=== PATIENT | female | born 1945 | race Caucasian/White ===

== ENCOUNTER 2021-03-18 09:39 | Outpatient (REF) | payer MEDICARE, MEDICAID, SELFPAY ==
--- NOTE | ~2021-03-18 | MM_ITS ---
EXAMINATION: BONE DENSITOMETRY CLINICAL INDICATION: Screening for osteoporosis. COMPARISON: Previous BD dated 01/10/2018 and baseline BD dated 01/20/2012. TECHNIQUE: Using a [employer] DXA System (software version: 13.1) manufactured by [employer], dual-energy x-ray absorptiometry was performed of the lumbar spine and left hip. The images are of good technical quality. Summary results are attached. FINDINGS: AP SPINE L1-L4: Current: BMD 1.103 g/cm2, Z-score 0.2, T-score -0.6, normal, 2.6% increase from previous, 1.8% increase from baseline (<5% change is not significant). Prior: BMD 1.075 g/cm2. Baseline: BMD 1.083 g/cm2. LEFT FEMUR, NECK: Current: BMD 0.602 g/cm2, Z-score -1.8, T-score -3.1, osteoporosis. Prior: BMD 0.695 g/cm2. Baseline: BMD 0.823 g/cm2. LEFT FEMUR, TOTAL: Current: BMD 0.749 g/cm2, Z-score -0.9, T-score -2.1, osteopenia, 1.8% decrease from previous, 14.8% decrease from baseline (<5% change is not significant). Prior: BMD 0.763 g/cm2. Baseline: BMD 0.879 g/cm2. IDENTIFIED RISK FACTORS: Dementia, menopause. HISTORY OF FRACTURE: None listed. MEDICATIONS: None listed. MM/XR DEXA axial skeleton IMPRESSION: 1. DIAGNOSIS: Osteoporosis based on the lowest T-score value of -3.1 in the femoral neck applying World Health Organization criteria. 2. 10-YEAR FRACTURE RISK PREDICTION, FRAX: Major osteoporotic fracture (clinical spine, forearm, hip or shoulder) 21.3%. Hip fracture 8.4%. 3. Treatment Recommendations: NOF guidelines recommend consideration for treatment in postmenopausal women and men age 50 and older presenting with the following: -A hip or vertebral (clinical or morphometric) fracture. -T-score less than or equal to -2.5 at the femoral neck or spine after appropriate evaluation to exclude secondary causes. -Low bone mass at the hip or spine and a 10-year fracture probability by FRAX of greater than or equal to 3% for hip fracture or greater than or equal to 20% for major osteoporotic fracture based on the [place] adapted WHO algorithm. 4. Other Recommendations: All treatment decisions require clinical judgment and consideration of individual patient factors, including patient preferences, comorbidities, previous drug use, risk factors not captured in the FRAX model (e.g. frailty, falls, vitamin D deficiency, increased bone turnover, interval significant decline in bone density) and possible under or overestimation of fracture risk by FRAX. Additional medical evaluation for secondary cause of low bone mineral density may be appropriate. FUTURE SCAN RECOMMENDATION: People with diagnosed cases of osteoporosis or at high risk for fracture should have regular bone mineral density tests. For patients eligible for Medicare, routine testing is allowed once every 2 years. The testing frequency can be increased to one year for patients who have rapidly progressing disease, those who are receiving or discontinuing medical therapy to restore bone mass, or have additional risk factors.
--- NOTE | ~2021-03-18 | MM_ITS ---
EXAMINATION: MM SCREENING DIGITAL BREAST TOMOSYNTHESIS, BILATERAL CLINICAL INFORMATION: Screening. Asymptomatic. The lifetime risk of breast cancer based on the Tyrer-Cuzick Model is 2%. COMPARISON: Mammography: 01/10/2018, 06/28/2016 TECHNIQUE: Digital breast tomosynthesis is performed in both the craniocaudal and mediolateral oblique views along with computer-aided detection (CAD). Synthesized 2D images are generated from the tomosynthesis. Additional left cleavage view is provided. FINDINGS: The breasts are almost entirely fatty (ACR BI-RADS breast composition Category a). Background stromal markings are stable. There are no significant masses, abnormal calcifications, or other abnormalities. The axilla and skin contours are unremarkable. No significant changes. MM/MM tomosynthesis screening BI IMPRESSION: No mammographic evidence of malignancy. ASSESSMENT: BI-RADS 1: Negative RECOMMENDATION: Routine annual mammography screening. This patient's information was entered into a reminder system with a target due date for their next mammogram.
== END 2021-03-18 09:40 | disposition home or self-care (01) ==
LOC: HO.MAMMO 09:39
PROVIDERS: PCP Internal Medicine; Visit Provider Internal Medicine
DX: Z13.820 Encounter for screening for osteoporosis (principal); Z78.0 Asymptomatic menopausal state; Z12.31 Encounter for screening mammogram for malignant neoplasm of breast
CPT/HCPCS: 77063; 77067; 77080

== ENCOUNTER 2021-08-18 14:36 | Outpatient (REF) | payer MEDICARE, MEDICAID, SELFPAY ==
--- NOTE | ~2021-08-18 | XR_ITS ---
EXAMINATION: XR TIBIA AND FIBULA, RIGHT CLINICAL INFORMATION: Reason fall COMPARISON: None TECHNIQUE: AP and lateral views of the right tibia and fibula were obtained. FINDINGS: The bones and soft tissues are normal. No fracture. There is a small calcaneal heel and retrocalcaneal enthesophytes. There is mild irregularity involving the ankle mortise with subchondral cystic changes involving the talus likely degenerative arthritis. XR/XR tibia fibula RT 2V IMPRESSION: No acute fracture involving tibia or fibula. Small calcaneal and retrocalcaneal enthesophyte. Mild degenerative changes ankle mortise.
--- NOTE | ~2021-08-18 | CT_ITS ---
EXAMINATION: CT HEAD WITHOUT CONTRAST CLINICAL INFORMATION: Reason fall, new dementia. M/S changes. COMPARISON: None TECHNIQUE: Contiguous axial imaging was performed from the skull base to vertex without intravenous administration of contrast. This CT examination was performed using dose optimization techniques as appropriate, variously including the following: *Automated exposure control *Adjustment of mA and/or kV according to patient size (this includes techniques or standardized protocols for targeted exams where dose is matched to indication/reason for exam; i.e. extremities or head) *Use of iterative reconstruction technique DLP: 779 mGy-cm FINDINGS: There is no evidence of acute intracranial hemorrhage or territorial infarction. No abnormal mass effect or midline shift is seen. Titus to white matter differentiation is well preserved. No extra-axial fluid collections are identified. The lateral ventricles are symmetrical but enlarged. There is mild periventricular hypodensity suggestive of chronic small vessel ischemic disease. Bone windows reveal no calvarial abnormality. There is a calcified 9 mm extracranial scalp lesion left parietal region The mastoid air cells and visualized portions of the paranasal sinuses are well aerated. CT/CT head/brain wo con IMPRESSION: No acute intracranial process seen. Age-related mild cerebral volume loss.
== END 2021-08-18 14:37 | disposition home or self-care (01) ==
LOC: HO.CT 14:36
PROVIDERS: Visit Provider Internal Medicine
DX: R41.82 Altered mental status, unspecified (principal); F03.90 Unspecified dementia, unspecified severity, without behavioral disturbance, psychotic disturbance, mood disturbance, and anxiety; Z91.81 History of falling
CPT/HCPCS: 70450; 73590

== ENCOUNTER 2021-12-07 08:10 | Outpatient (REF) | payer MEDICARE, MEDICAID, SELFPAY ==
--- NOTE | ~2021-12-07 | CT_ITS ---
EXAMINATION: CT HEAD WITHOUT CONTRAST CLINICAL INFORMATION: Alzheimer's disease COMPARISON: Previous head CT August 2021 TECHNIQUE: Contiguous axial imaging was performed from the skull base to vertex without intravenous administration of contrast. This CT examination was performed using dose optimization techniques as appropriate, variously including the following: *Automated exposure control *Adjustment of mA and/or kV according to patient size (this includes techniques or standardized protocols for targeted exams where dose is matched to indication/reason for exam; i.e. extremities or head) *Use of iterative reconstruction technique DLP: 724 mGy-cm FINDINGS: There is no evidence of an extra-axial collection. There is no evidence of intra-axial or extra-axial hemorrhage. The ventricles and extra-axial CSF spaces are prominent suggestive of mild generalized atrophy. There is nonspecific periventricular white matter disease. No mass, mass effect or infarct is seen. There is evidence of atherosclerotic disease. No skull fracture or bone lesion is seen. There are bilateral small calcified scalp lesions that are stable. Visualized paranasal sinuses, mastoid air cells and middle ears are clear. CT/CT head/brain wo con IMPRESSION: No acute findings. Mild generalized atrophy and nonspecific periventricular white matter disease August 2021 exam.
== END 2021-12-07 08:11 | disposition home or self-care (01) ==
LOC: HO.CT 08:10
PROVIDERS: Visit Provider Psychiatry & Neurology Neurology
DX: G30.9 Alzheimer's disease, unspecified (principal)
CPT/HCPCS: 70450

== ENCOUNTER 2022-06-16 09:58 | Emergency (ER) | payer MEDICARE, MEDICAID, SELFPAY ==
--- NOTE | ~2022-06-16 | XR_ITS ---
EXAMINATION: XR KNEE, RIGHT CLINICAL INFORMATION: Right knee pain status post fall. COMPARISON: None TECHNIQUE: Four views of the right knee. FINDINGS: Mild medial femoral-tibial joint space narrowing is seen. There is no acute fracture or dislocation. The joint spaces are unremarkable. The soft tissues are unremarkable. XR/XR knee RT 3V IMPRESSION: Mild medial femoral-tibial joint space narrowing likely degenerative in nature. No acute abnormality.
--- NOTE | ~2022-06-16 | XR_ITS ---
EXAMINATION: XR KNEE, LEFT CLINICAL INFORMATION: Left knee pain status post fall. COMPARISON: None TECHNIQUE: Four views of the left knee. FINDINGS: Mild medial femoral-tibial joint space narrowing is seen. There is no acute fracture, dislocation or joint effusion. The soft tissues are unremarkable. XR/XR knee LT 3V IMPRESSION: Mild medial femoral-tibial joint space narrowing, likely degenerative in nature. No acute abnormality.
--- NOTE | ~2022-06-16 | CT_ITS ---
EXAMINATION: CT HEAD WITHOUT CONTRAST CLINICAL INFORMATION: Unwitnessed fall, rule out intracranial abnormality. COMPARISON: 12/07/[address] scan[address] TECHNIQUE: Contiguous axial imaging was performed from the skull base to vertex without intravenous administration of contrast. Coronal and sagittal reformatted images were obtained. This CT examination was performed using dose optimization techniques as appropriate, variously including the following: *Automated exposure control *Adjustment of mA and/or kV according to patient size (this includes techniques or standardized protocols for targeted exams where dose is matched to indication/reason for exam; i.e. extremities or head) *Use of iterative reconstruction technique DLP: 682.94 mGy-cm FINDINGS: There is mild widening of the cortical sulci and associated ventriculomegaly. Mild periventricular microvascular changes are seen. The lateral ventricles are symmetrical. The third and fourth ventricles are in their normal midline position. The basilar and prepontine cisterns are unremarkable. An ovoid nodule seen along the inner table of the left parietal region superiorly to the level the midline measuring approximately 1.1 x 0.7 x 0.8 cm (image 86, series 9; image 56, series 11). There is no acute intra or extracerebral abnormality. There is no mass effect or midline shift. Sections through the bony calvarium are unremarkable. The orbits are intact. The paranasal sinuses are clear. The mastoid air cells are clear. Mild anterior nasal septal deviation, apex of the left. Incidental coarsely calcified subcutaneous nodules without surrounding abnormality or significant abnormality. CT/CT head/brain wo IV con IMPRESSION: 1. No acute intracranial abnormality. 2. Left parietal nodule suggesting a meningioma. Further evaluation with nonemergent contrast-enhanced brain MRI is recommended.
--- NOTE | ~2022-06-16 | CT_ITS ---
EXAMINATION: CT CERVICAL SPINE WITHOUT CONTRAST CLINICAL INFORMATION: Neck pain status post fall. COMPARISON: Cervical spine radiographs dated 08/09/2019. TECHNIQUE: Multiple axial images of the cervical spine were obtained without the administration of intravenous contrast. Coronal and sagittal reformatted images were obtained. This CT examination was performed using dose optimization techniques as appropriate, variously including the following: *Automated exposure control *Adjustment of mA and/or kV according to patient size (this includes techniques or standardized protocols for targeted exams where dose is matched to indication/reason for exam; i.e. extremities or head) *Use of iterative reconstruction technique DLP: 87.29 mGy-cm FINDINGS: There is straightening of the normal cervical lordosis and mild cervical thoracic dextro scoliosis. Moderate to severe degenerative disc disease at C6-C7 and C7-T1. Mild bilateral neural foraminal narrowing is seen at these levels as well. The vertebral bodies are intact. The odontoid process is intact with mild articulating degenerative changes. Mild to moderate multilevel facet arthropathy, left greater than right. The spinous processes are intact. The cervical soft tissues are unremarkable. No cervical lymphadenopathy. The thyroid gland is unremarkable. The visualized lung apices are clear. CT/CT cervical spine wo IV con IMPRESSION: 1. Mild cervical thoracic levoscoliosis, associated straightening of the normal cervical lordosis and multilevel degenerative changes without acute abnormality .
[2022-06-16 10:14] VITALS: BP 138/86; PULSE 64; O2SAT 98
--- NOTE | 2022-06-16 10:14 | ECG_ITS ---
Test Reason : fall Blood Pressure : / mmHG Vent. Rate : 061 BPM Atrial Rate : 061 BPM P-R Int : 154 ms QRS Dur : 064 ms QT Int : 432 ms P-R-T Axes : 076 000 052 degrees QTc Int : 434 ms Normal sinus rhythm Low voltage QRS RSR' or QR pattern in V1 suggests right ventricular conduction delay Abnormal ECG When compared with ECG of 25-JUN-2009 10:18, Nonspecific T wave abnormality, improved in Anterolateral leads QT has shortened Referred By: Wanda Sarabia Electronically Signed By:RANJANA MERIDA MD
[2022-06-16 10:17] VITALS: BP 150/81; PULSE 71; RESP 18; TEMP 36.6; O2SAT 100; BMI 29.2
--- NOTE | 2022-06-16 10:17 | ED.FALL ---
HPI - Fall General Chief Complaint: Fall Stated Complaint: FALL W/DEVIN KNEE PAIN Time Seen by Provider: 06/16/22 10:01 Mode of arrival: EMS Limitations: altered mental status and physical limitation History of Present Illness HPI Narrative: 77 yo F with a PMH of Alzheimer's disease and current anticoagulation therapy presents to the ED via EMS after an unwitnessed fall at home. Pt with AMS at baseline and unable to report how she fell, what injuries she has, or if she lost consciousness. Currently she denies pain at rest and endorses ttp at left medial knee and right lateral knee. Ecchymosis noted at right lateral knee, pt is unsure if bruising is related to an old injury or current fall. Pt's daughter to be presenting to the ED to be at mother's side. MD complaint: fall Onset (ago): hour(s) Fall from: other (unknown) Fall witnessed: no Place fall occurred: home Loss of consciousness: unsure Prolonged down time: unclear Symptoms prior to fall: other (unclear) Context: other (unclear) Location of injury: other (unclear) Location of injury - extremities: bilateral: knee (swelling noted in medial left knee, ecchymosis noted on right lateral knee) Associated symptoms (after fall): denies Related Data Allergies Allergy/AdvReac Type Severity Reaction Status Date / Time Sulfa (Sulfonamide Allergy Unknown UNKNOWN Unverified 04/17/20 15:05 Antibiotics) [SULFA (SULFONAMIDE ANTIBIOTICS)] sulfamethoxazole Allergy Unknown Verified 01/17/18 00:00 Review of Systems Review of Systems: Yes all other systems are reviewed and are negative Constitutional: Constitutional: Reports no additional constitutional complaints, Denies headache(s) and Reports weakness Eyes: Eyes: Reports no additional eye complaints, Denies blurry vision, Denies change in vision, Denies diplopia and Denies loss of vision ENT: Reports system reviewed and no additional complaints, except as documented, Denies headache(s) and Reports hearing loss Cardiovascular: Cardiovascular: Reports no additional cardiovascular complaints, Denies chest pain, Denies Loss of Consciousness and Denies dyspnea Respiratory: Respiratory: Reports no additional respiratory complaints, Denies pain on inspiration and Denies dyspnea Gastrointestinal: Gastrointestinal: Denies melena, Denies hematochezia, Denies change in stool character, Denies constipation and Denies diarrhea Musculoskeletal: Musculoskeletal: Reports abnormal gait, Denies numbness and Denies tingling Integumentary/Breasts: Skin/Breast: Reports system reviewed and no additional complaints, except as docu and Reports swelling Neurologic: Reports abnormal gait, Reports confusion, Denies headache(s), Denies loss of vision, Reports memory loss, Denies numbness, Denies tingling and Reports weakness Psychiatric: Psychiatric: Reports confusion and Reports memory loss [facility] Past Medical History Attestation statement: The following information was validated with the patient. Source: old records reviewed and obtained from family Social History Social History Advance Directives: No Physical Exam Vital Signs: Vital Signs: Last Vital Signs Temp 98 F 06/16/22 10:17 Pulse 78 06/16/22 12:24 Resp 16 06/16/22 12:24 BP 134/79 06/16/22 12:24 Pulse Ox 97 06/16/22 12:24 O2 Del Method 06/16/22 12:24 BMI result Body Mass Index 29.2 Const: General: cooperative, comfortable, alert and confusion Nutritional Appearance: well nourished Orientation/consciousness: oriented to person, oriented to place and confusion Limitations: altered mental status and physical limitations HEENT: Head: Yes normal to inspection and Yes atraumatic Ears: hearing grossly normal bilaterally General nose exam: Normal external nose present Face and sinus: Yes normal facial exam Mouth: Normal oral and palatal mucosa present Eyes: General: appearance normal, both eyes and all related structures Visual Aj: normal visual aj by confrontation Alignment and Position: alignment normal Periorbital: periorbital findings normal Eyelids: Yes eyelids normal Conjunctivae: conjunctivae normal Sclerae: sclerae normal Pupils: Equal, round and reactive pupils present EOM: EOMs intact bilaterally Neck: Neck: Yes normal visual inspection and Yes full ROM Chest: Chest palpation & inspection: normal inspection of the chest Resp: Effort & Inspection: normal respiratory effort and able to speak in complete sentences Auscultation: clear to auscultation bilaterally Cardio: Rate: regular rate Rhythm: regular rhythm GI: Inspection: Yes normal to inspection Auscultation: normal bowel sounds Back/Spine/Pelvis: Thoracic/Lumbar Spine: thoracic and lumbar spine normal to inspection Skin: General skin exam: ecchymosis (right lateral knee) Neuro: General: oriented to person, oriented to place and confusion Cranial nerves: Yes Equal, round and reactive pupils present Gait exam (Neuro): Normal gait present Motor exam (neuro): 5/5 motor strength present throughout Extrem: General: Yes normal to inspection, Yes full ROM, Yes capillary refill normal and Yes normal exam except as noted Right lower extremity: full ROM, normal capillary refill and knee Left lower extremity: normal capillary refill and knee Details: swelling Psych: Appearance: grossly normal Mental Status: other Speech and movement: Normal speech and movement present and Clear speech present Affect: normal affect Attitude: cooperative Thought process: Normal thought process present Thought content: Normal thought content present MDM - Fall MDM Narrative Medical decision making narrative: 77 yo F with a PMH of Alzheimer's disease presents to the ED via EMS after an unwitnessed fall at home with ttp at left medial knee and right lateral knee. Devin knee x-rays negative for acute abdormality. CT head negative showing left parietal nodule suggesting meningioma with recommendation for nonemergent MRI, negative for acute abnormalities. CT cervical spine negative for acute abnormality. Lab work unremarkable. Pt ambulated to bathroom with steady gait. Educated provided on fall prevention. Educated to present to the ED with headache, dizziness, weakness, nausea or vomiting. Recommended to follow up with neurologist regarding CT head and follow up with PCP for further management. Pt cleared for discharge home, plan discussed with patient and family without any further questions or concerns. Medical Records Attestation: I reviewed the patient's medical records. Lab Data Attestation: I reviewed the patient's lab results. Result diagrams: 06/16/22 11:35 06/16/22 11:35 Labs: Lab Results 06/16/22 06/16/22 06/16/22 Range/Units 11:11 11:35 11:35 WBC 6.7 (4.8-10.8) X10*3/uL RBC 4.21 (4.20-5.50) X10*6/uL Hgb 12.9 (12.0-16.0) g/dl Hct 39.0 (37.0-47.0) % MCV 92.6 (80.0-98.0) fL MCH 30.6 (27.0-33.0) pg MCHC 33.1 (31.0-35.0) g/dl RDW 13.4 (11.0-16.0) % Plt Count 162 (160-400) X10*3/uL MPV 10.6 (9.4-12.3) fL Immature Gran % (Auto) 0.1 (0.0-0.4) % Neut % (Auto) 77.7 H (45-73) % Lymph % (Auto) 13.9 L (20-40) % Gulf % (Auto) 7.6 (2-11) % Eos % (Auto) 0.4 (0-4) % Baso % (Auto) 0.3 (0-2) % Lymph # (Auto) 0.9 L (1.2-4.9) X10*3/uL Gulf # (Auto) 0.5 (0.1-1.2) X10*3/uL Eos # (Auto) 0.0 (0.0-0.4) X10*3/uL Baso # (Auto) 0.0 (0.0-0.2) X10*3/uL Abs Immat Gran (auto) 0.01 (0.00-0.03) X10*3/uL Absolute Neuts (auto) 5.2 (2.0-8.3) x10*3/uL Absolute Nucleated RBC 0.000 (0.0-0.012) X10*3/uL Nucleated RBC % (auto) 0.0 (0.0-0.2) /100WBC PT Cancelled INR Cancelled APTT Cancelled Sodium 140 (135-145) mmol/L Potassium 4.3 (3.3-5.1) mmol/L Chloride 102 (96-108) mmol/L Carbon Dioxide 23 (22-29) mmol/L Anion Gap 19 (12-20) BUN 13 (9-16) mg/dL Creatinine 0.74 (0.5-1.4) mg/dL Estim Creat Clear Calc 58.4 Estimated GFR > 60 Random Glucose 87 (60-115) mg/dL Calcium 8.9 (8.4-10.2) mg/dL Troponin I High Sens (<3.5-17.0) ng/L 06/16/22 Range/Units 11:35 WBC (4.8-10.8) X10*3/uL RBC (4.20-5.50) X10*6/uL Hgb (12.0-16.0) g/dl Hct (37.0-47.0) % MCV (80.0-98.0) fL MCH (27.0-33.0) pg MCHC (31.0-35.0) g/dl RDW (11.0-16.0) % Plt Count (160-400) X10*3/uL MPV (9.4-12.3) fL Immature Gran % (Auto) (0.0-0.4) % Neut % (Auto) (45-73) % Lymph % (Auto) (20-40) % Gulf % (Auto) (2-11) % Eos % (Auto) (0-4) % Baso % (Auto) (0-2) % Lymph # (Auto) (1.2-4.9) X10*3/uL Gulf # (Auto) (0.1-1.2) X10*3/uL Eos # (Auto) (0.0-0.4) X10*3/uL Baso # (Auto) (0.0-0.2) X10*3/uL Abs Immat Gran (auto) (0.00-0.03) X10*3/uL Absolute Neuts (auto) (2.0-8.3) x10*3/uL Absolute Nucleated RBC (0.0-0.012) X10*3/uL Nucleated RBC % (auto) (0.0-0.2) /100WBC PT INR APTT Sodium (135-145) mmol/L Potassium (3.3-5.1) mmol/L Chloride (96-108) mmol/L Carbon Dioxide (22-29) mmol/L Anion Gap (12-20) BUN (9-16) mg/dL Creatinine (0.5-1.4) mg/dL Estim Creat Clear Calc Estimated GFR Random Glucose (60-115) mg/dL Calcium (8.4-10.2) mg/dL Troponin I High Sens 14.4 (<3.5-17.0) ng/L Imaging Data Lt Knee x-ray: Radiologist's impression: XR/XR knee LT 3V IMPRESSION: Mild medial femoral-tibial joint space narrowing, likely degenerative in nature. No acute abnormality. Rt Knee x-ray: Radiologist's impression: XR/XR knee RT 3V IMPRESSION: Mild medial femoral-tibial joint space narrowing likely degenerative in nature. No acute abnormality. CT scan - head: Radiologist's impression: CT/CT head/brain wo IV con IMPRESSION: 1. No acute intracranial abnormality. 2. Left parietal nodule suggesting a meningioma. Further evaluation with nonemergent contrast-enhanced brain MRI is recommended. CT scan - cervical spine : Radiologist's impression: CT/CT cervical spine wo IV con IMPRESSION: 1. Mild cervical thoracic levoscoliosis, associated straightening of the normal cervical lordosis and multilevel degenerative changes without acute abnormality . Discharge Plan Discharge Clinical Impression: Fall Patient Disposition: Home, Self-Care Instructions: Fall Prevention for Older Adults (ED) Referrals: [facility] Neuro/Sleep [Provider Group] Interventions: ED Discharge Assessment Last Done: 06/16/22 12:24 Discharge Date/Time: 06/16/22 12:25 Print Language: Guamanian
[2022-06-16 11:41] LABS: MANUAL DIFF FLAG NO
[2022-06-16 11:49] LABS: Basophils Percent Auto 0.3 % (0-2); Eosinophils Percent Auto 0.4 % (0-4); Hemoglobin 12.9 g/dl (12.0-16.0); Imm Gran Abs Auto 0.01 X10*3/uL (0.00-0.03); Imm Gran Pct Auto 0.1 % (0.0-0.4); Lymphocytes Absolute Auto 0.9 X10*3/uL (1.2-4.9); Lymphocytes Percent Auto 13.9 % (20-40); Mean Corpuscular HGB Conc 33.1 g/dl (31.0-35.0); Mean Corpuscular Hemoglobin 30.6 pg (27.0-33.0); Mean Corpuscular Volume 92.6 fL (80.0-98.0); Mean Platelet Volume 10.6 fL (9.4-12.3); Monocytes Absolute Auto 0.5 X10*3/uL (0.1-1.2); Monocytes Percent Auto 7.6 % (2-11); Neutrophils Absolute Auto 5.2 x10*3/uL (2.0-8.3); Neutrophils Percent Auto 77.7 % (45-73); Platelet Count 162 X10*3/uL (160-400); Red Blood Count 4.21 X10*6/uL (4.20-5.50); Red Cell Distribution Width 13.4 % (11.0-16.0); White Blood Count 6.7 X10*3/uL (4.8-10.8)
[2022-06-16 12:03] LABS: Anion Gap 19 (12-20); Blood Urea Nitrogen 13 mg/dL (9-16); Calcium 8.9 mg/dL (8.4-10.2); Carbon Dioxide 23 mmol/L (22-29); Chloride 102 mmol/L (96-108); Creatinine Clr Calc Pharmacy 58.4; Estimated Glomerular Filt Rate > 60; Glucose Random 87 mg/dL (60-115); Potassium 4.3 mmol/L (3.3-5.1); Sodium 140 mmol/L (135-145)
[2022-06-16 12:12] LABS: Troponin-I High Sensitivity 14.4 ng/L (<3.5-17.0)
[2022-06-16 12:24] VITALS: BP 134/79; PULSE 78; RESP 16; O2SAT 97
== END 2022-06-16 12:25 | disposition home or self-care (01) ==
PROVIDERS: Nurse Practitioner Family; Emergency Provider Emergency Medicine Emergency Medical Services; PCP Internal Medicine
DX: S80.01XA Contusion of right knee, initial encounter (principal); W18.30XA Fall on same level, unspecified, initial encounter; M25.562 Pain in left knee; M25.561 Pain in right knee; R53.1 Weakness; G30.9 Alzheimer's disease, unspecified; F02.80 Dementia in other diseases classified elsewhere, unspecified severity, without behavioral disturbance, psychotic disturbance, mood disturbance, and anxiety; Y93.9 Activity, unspecified; Y92.039 Unspecified place in apartment as the place of occurrence of the external cause; Y99.9 Unspecified external cause status
CPT/HCPCS: 70450; 72125; 73562; 80048; 84484; 85025; 93005; 99283; 99284

== ENCOUNTER 2022-06-22 16:13 | Emergency (ER) | payer MEDICARE, MEDICAID, SELFPAY ==
[2022-06-22 16:19] VITALS: BP 126/76; BP 151/74; PULSE 66; PULSE 77; RESP 18; O2SAT 100; O2SAT 96; BMI 28.3
--- NOTE | 2022-06-22 16:52 | ED.GENADULT ---
HPI - General Adult General Chief complaint: Failure to Thrive Stated complaint: failure to thrive Time Seen by Provider: 06/22/22 16:27 Source: patient and family History of Present Illness HPI narrative: This is a 77 years old female with the history of dementia, TIA, type 2 diabetes was brought in by the family because of poor p.o. intake x2 days. There is no other systemic symptoms no fever no chills no diarrhea no vomiting Onset (ago): day(s) (2) Radiation: non-radiation Severity: mild Pain Consistency: constant Relieving factors: none Related Data Previous Rx's Medication Instructions Recorded cephalexin 500 mg capsule 500 mg PO Q8H #15 caps 06/22/22 Allergies Allergy/AdvReac Type Severity Reaction Status Date / Time Sulfa (Sulfonamide Allergy Unknown UNKNOWN Unverified 04/17/20 15:05 Antibiotics) [SULFA (SULFONAMIDE ANTIBIOTICS)] sulfamethoxazole Allergy Unknown Verified 01/17/18 00:00 Review of Systems Constitutional: Constitutional: Reports no additional constitutional complaints ENT: Reports system reviewed and no additional complaints, except as documented Respiratory: Respiratory: Reports no additional respiratory complaints [facility] Social History Social History Advance Directives: No Advance Directives Information Provided: Yes Physical Exam ED Vital Signs: Vital Signs - 24 hr 06/22/22 16:19 06/22/22 19:59 Temperature 97.9 F Pulse Rate 66 65 Respiratory Rate 18 17 Blood Pressure 151/74 H 141/51 H Pulse Oximetry 100 99 Oxygen Delivery Method Room Air Room Air BMI result Body Mass Index 28.3 Const General: well developed Nutritional Appearance: average body habitus Limitations: no limitations HENMT Head: Yes normal to inspection Face and sinus: Yes normal facial exam Mouth: Normal oral and palatal mucosa present Throat: Yes posterior oropharynx normal Neck Neck: Yes normal visual inspection Chest Chest palpation & inspection: normal inspection of the chest Resp Effort & Inspection: normal respiratory effort Cardio Jugular venous distension: no JVD Rate: regular rate Rhythm: regular rhythm GI Inspection: Yes normal to inspection Palpation (GI): Soft to palpation, not firm, nontender and no guarding Auscultation: normal bowel sounds Skin General skin exam: no rashes or lesions noted and elasticity normal Lesions: no lesions Rashes: no rashes Neuro General: CN's II-XI intact bilaterally Cranial nerves: Yes CN's II-XII intact bilaterally Course Reevaluation(s) Reevaluation #1: I re-examined the patient at this time she is doing much better she received a 1 L of fluids labs are within normal limit, I think she can be discharged home , I spoke with the brother and daughter Isaura out comfortable with the plan of discharge today will follow up with primary care physician Medications Administered Discontinued Medications Generic Name Dose Route Start Last Admin Trade Name Miriam PRN Reason Stop Dose Admin Cephalexin HCl 500 mg 06/22/22 21:08 06/22/22 21:22 Cephalexin 500 Mg Capsule PO 06/22/22 21:09 500 mg ONCE ONE Administration Sodium Chloride 1,000 mls @ 999 mls/hr 06/22/22 17:00 06/22/22 21:22 Ns IVCONT 06/22/22 18:00 Infused .Q1H1M STEPHEN Infusion Procedures EJ/Peripheral Line Arm R: Time Out Performed: Yes Skin Cleansed in Sterile Fashion: Yes Size (gauge): 20 IV Secured and Dressing Applied: Yes Patient Tolerated Procedure: well Additional Comments: Under US guided linear probe cannulated rt brachial vein with 20 rachell catheter Medical Decision Making Lab Data Result diagrams: 06/22/22 17:48 06/22/22 17:48 Labs: Lab Results 06/22/22 06/22/22 06/22/22 Range/Units 17:48 17:48 20:45 WBC 5.8 (4.8-10.8) X10*3/uL RBC 4.23 (4.20-5.50) X10*6/uL Hgb 13.0 (12.0-16.0) g/dl Hct 38.5 (37.0-47.0) % MCV 91.0 (80.0-98.0) fL MCH 30.7 (27.0-33.0) pg MCHC 33.8 (31.0-35.0) g/dl RDW 13.3 (11.0-16.0) % Plt Count 166 (160-400) X10*3/uL MPV 10.3 (9.4-12.3) fL Immature Gran % (Auto) 0.2 (0.0-0.4) % Neut % (Auto) 67.3 (45-73) % Lymph % (Auto) 21.3 (20-40) % [place] % (Auto) 9.9 (2-11) % Eos % (Auto) 1.0 (0-4) % Baso % (Auto) 0.3 (0-2) % Lymph # (Auto) 1.2 (1.2-4.9) X10*3/uL [place] # (Auto) 0.6 (0.1-1.2) X10*3/uL Eos # (Auto) 0.1 (0.0-0.4) X10*3/uL Baso # (Auto) 0.0 (0.0-0.2) X10*3/uL Abs Immat Gran (auto) 0.01 (0.00-0.03) X10*3/uL Absolute Neuts (auto) 3.9 (2.0-8.3) x10*3/uL Absolute Nucleated RBC 0.000 (0.0-0.012) X10*3/uL Nucleated RBC % (auto) 0.0 (0.0-0.2) /100WBC Sodium 136 (135-145) mmol/L Potassium 4.4 (3.3-5.1) mmol/L Chloride 97 (96-108) mmol/L Carbon Dioxide 24 (22-29) mmol/L Anion Gap 19 (12-20) BUN 14 (9-16) mg/dL Creatinine 0.85 (0.5-1.4) mg/dL Estim Creat Clear Calc 46.2 Estimated GFR > 60 Random Glucose 78 (60-115) mg/dL Calcium 8.9 (8.4-10.2) mg/dL Total Bilirubin 0.7 (0.0-1.0) mg/dL AST 21 (5-31) U/L ALT 9 (0-31) U/L Alkaline Phosphatase 56 (39-117) U/L Total Protein 6.9 (6.5-8.0) g/dL Albumin 3.9 (3.5-5.0) g/dL Urine Color Yellow Urine Appearance Clear Urine pH 5.5 (5.0-9.0) Ur Specific Lutz 1.020 (1.005-1.025) Urine Protein Trace (Neg-Trace) mg/dL Urine Glucose (UA) Negative (Negative) mg/dL Urine Ketones >=160 (Negative) mg/dL Urine Blood Small (1+) H (Negative) Urine Nitrite Negative (Negative) Ur Leukocyte Esterase Moderate (2+) H (Negative) Urine RBC 3-5 H (0-2) /HPF Urine WBC 21-50 H (0-5) /HPF Ur Squamous Epith Cells 6-10 (0-2) /HPF Urine Bacteria None Seen (None Seen) Hyaline Casts 6-10 (0-2) /LPF Discharge Plan Discharge Clinical Impression: Dehydration, UTI (urinary tract infection) Patient Disposition: Home, Self-Care Instructions: Dehydration (ED), Urinary Tract Infection in Older Adults (ED) Additional Instructions: Follow-up with your primary care physician return if you worse any concern Prescriptions: New cephalexin 500 mg capsule 500 mg PO Q8H Qty: 15 0RF Referrals: Abimael Winslow MD [Primary Care Provider] - 3 days Interventions: ED Discharge Assessment Last Done: 06/22/22 21:25 Discharge Date/Time: 06/22/22 21:25
[2022-06-22 17:52] LABS: MANUAL DIFF FLAG NO
[2022-06-22 17:54] LABS: Basophils Percent Auto 0.3 % (0-2); Eosinophils Absolute Auto 0.1 X10*3/uL (0.0-0.4); Hematocrit 38.5 % (37.0-47.0); Imm Gran Abs Auto 0.01 X10*3/uL (0.00-0.03); Imm Gran Pct Auto 0.2 % (0.0-0.4); Lymphocytes Absolute Auto 1.2 X10*3/uL (1.2-4.9); Lymphocytes Percent Auto 21.3 % (20-40); Mean Corpuscular HGB Conc 33.8 g/dl (31.0-35.0); Mean Corpuscular Hemoglobin 30.7 pg (27.0-33.0); Mean Platelet Volume 10.3 fL (9.4-12.3); Monocytes Absolute Auto 0.6 X10*3/uL (0.1-1.2); Monocytes Percent Auto 9.9 % (2-11); Neutrophils Absolute Auto 3.9 x10*3/uL (2.0-8.3); Neutrophils Percent Auto 67.3 % (45-73); Platelet Count 166 X10*3/uL (160-400); Red Blood Count 4.23 X10*6/uL (4.20-5.50); Red Cell Distribution Width 13.3 % (11.0-16.0); White Blood Count 5.8 X10*3/uL (4.8-10.8)
[2022-06-22 18:08] LABS: Alanine Aminotransferase 9 U/L (0-31); Albumin Level 3.9 g/dL (3.5-5.0); Alkaline Phosphatase 56 U/L (39-117); Anion Gap 19 (12-20); Aspartate Amino Transferase 21 U/L (5-31); Bilirubin Total 0.7 mg/dL (0.0-1.0); Blood Urea Nitrogen 14 mg/dL (9-16); Calcium 8.9 mg/dL (8.4-10.2); Carbon Dioxide 24 mmol/L (22-29); Chloride 97 mmol/L (96-108); Creatinine Clr Calc Pharmacy 46.2; Estimated Glomerular Filt Rate > 60; Glucose Random 78 mg/dL (60-115); Potassium 4.4 mmol/L (3.3-5.1); Sodium 136 mmol/L (135-145); Total Protein 6.9 g/dL (6.5-8.0)
[2022-06-22] MEDS: 0.9 % Sodium Chloride 1,000 ML 999 ML IVCONT (18:54)
[2022-06-22 19:59] VITALS: BP 141/51; PULSE 65; RESP 17; TEMP 36.6; O2SAT 99
[2022-06-22 20:55] LABS: Appearance Urine Clear; Color Urine Yellow; Glucose Urine UA Negative (Negative); Leukocyte Esterase Urine Moderate (2+) (Negative); Nitrite Urine Negative (Negative); PH 5.5 (5.0-9.0); UMIC TRIGGER UACC YES; Urine Blood Small (1+) (Negative); Urine Ketones >=160 mg/dL (Negative); Urine Protein Trace mg/dL (Neg-Trace)
[2022-06-22 21:02] LABS: Bacteria Urine None Seen (None Seen); UACC Culture Trigger YES; WBC Urine 21-50 /HPF (0-5)
[2022-06-22] MEDS: cephALEXin 500 MG CAPSULE PO (21:22)
== END 2022-06-22 21:25 | disposition home or self-care (01) ==
PROVIDERS: Emergency Provider Emergency Medicine; PCP Internal Medicine
DX: N39.0 Urinary tract infection, site not specified (principal); E86.0 Dehydration; R62.7 Adult failure to thrive; E11.9 Type 2 diabetes mellitus without complications; Z86.73 Personal history of transient ischemic attack (TIA), and cerebral infarction without residual deficits; Z79.899 Other long term (current) drug therapy
CPT/HCPCS: 36415; 80053; 81001; 85025; 87086; 96360; 96361; 99284

== ENCOUNTER 2023-03-16 10:16 | Outpatient (REF) | payer MEDICARE, MEDICAID, SELFPAY ==
[2023-03-16 11:15] LABS: Estimated Average Glucose 114 mg/dL; Hemoglobin A1c % 5.6 %
== END 2023-03-16 10:17 | disposition home or self-care (01) ==
LOC: HO.LAB 10:16
PROVIDERS: PCP Internal Medicine; Visit Provider Internal Medicine
DX: R53.83 Other fatigue (principal); E11.9 Type 2 diabetes mellitus without complications
CPT/HCPCS: 36415; 83036

== ENCOUNTER 2023-04-27 09:47 | Outpatient (REF) | payer MEDICARE, MEDICAID, SELFPAY ==
[2023-04-27 10:09] LABS: MANUAL DIFF FLAG NO
[2023-04-27 10:20] LABS: Basophils Percent Auto 0.2 % (0-2); Eosinophils Absolute Auto 0.2 X10*3/uL (0.0-0.4); Eosinophils Percent Auto 4.3 % (0-4); Hematocrit 35.1 % (37.0-47.0); Hemoglobin 11.2 g/dl (12.0-16.0); Imm Gran Abs Auto 0.02 X10*3/uL (0.00-0.03); Imm Gran Pct Auto 0.4 % (0.0-0.4); Lymphocytes Absolute Auto 1.4 X10*3/uL (1.2-4.9); Lymphocytes Percent Auto 26.8 % (20-40); Mean Corpuscular HGB Conc 31.9 g/dl (31.0-35.0); Mean Corpuscular Hemoglobin 29.7 pg (27.0-33.0); Mean Corpuscular Volume 93.1 fL (80.0-98.0); Monocytes Absolute Auto 0.7 X10*3/uL (0.1-1.2); Monocytes Percent Auto 13.2 % (2-11); Neutrophils Percent Auto 55.1 % (45-73); Platelet Count 196 X10*3/uL (160-400); Red Blood Count 3.77 X10*6/uL (4.20-5.50); Red Cell Distribution Width 12.8 % (11.0-16.0); White Blood Count 5.4 X10*3/uL (4.8-10.8)
[2023-04-27 10:55] LABS: Alanine Aminotransferase 5 U/L (0-31); Albumin Level 3.9 g/dL (3.5-5.0); Alkaline Phosphatase 70 U/L (39-117); Anion Gap 10 (12-20); Aspartate Amino Transferase 20 U/L (5-31); Bilirubin Total 0.5 mg/dL (0.0-1.0); Blood Urea Nitrogen 15 mg/dL (9-16); Calcium 9.4 mg/dL (8.4-10.2); Carbon Dioxide 30 mmol/L (22-29); Chloride 104 mmol/L (96-108); Cholesterol 145 mg/dL (<200); Estimated Glomerular Filt Rate > 60; Glucose Fasting 96 mg/dL (60-99); HDL Cholesterol 51 mg/dL (>40); LDL Cholesterol Calculated 71 mg/dL (<100); Potassium 4.3 mmol/L (3.3-5.1); Sodium 140 mmol/L (135-145); Total Protein 7.8 g/dL (6.5-8.0); Triglycerides 115 mg/dL (<150)
== END 2023-04-27 09:48 | disposition home or self-care (01) ==
LOC: HO.LAB 09:47
PROVIDERS: PCP Internal Medicine; Visit Provider Internal Medicine
DX: R53.83 Other fatigue (principal); E78.5 Hyperlipidemia, unspecified; E11.9 Type 2 diabetes mellitus without complications
CPT/HCPCS: 36415; 80053; 80061; 85025

== ENCOUNTER 2025-03-04 09:52 | Outpatient (AMB) | payer MEDICARE, MEDICAID, SELFPAY ==
--- NOTE | 2025-03-04 10:02 | A.OFFPC_ITS ---
Vital Signs 03/04/25 10:12 BMI Reason not done Patient refused/unable BP 168/72 H Respiration 16 Pulse 52 Pulse Source Pulse Oximeter Temp 97.8 F Temp Source Temporal Artery Scan Pulse Oximetry (%) 100 Oxygen Delivery Method Room Air Comment Patient has Dementia Intake Visit Reasons: establish care Press And B[employer] Machine Tender Required: No Accompanied by: brother and son Allergies sulfamethoxazole Allergy (Mild, Verified 03/04/25 11:15) Unknown Sulfa (Sulfonamide Antibiotics) (SULFA (SULFONAMIDE ANTIBIOTICS)) Allergy (Unknown, Unverified 03/04/25 11:15) UNKNOWN Medication List - Last Reconciled 03/04/25 by Ayana Leung PA-C aspirin 81 mg PO DAILY clopidogrel 75 mg PO DAILY furosemide 20 mg PO DAILY metformin 500 mg PO DAILY mupirocin 2% 1 appl topical BID oxybutynin chloride ER 10 mg PO DAILY potassium chloride ER 10 mEq PO DAILY simvastatin 40 mg PO BEDTIME Tobacco use date assessed: 03/04/25 Fall risk assessment: 1 Fall in past year Last assessed Fall Risk: 03/04/25 Dental Screening Dental Screen Date: 03/04/25 Did you have a dental visit in the last 12 months?: No Did you have a dental problem in the last 6 months where you did not have access to dental care?: No Was dental information given to patient?: Patient has dentist (patient has dentures) HPI establish care HPI Details The patient is an 79-year-old female presenting with a new patient appointment and management of chronic conditions. The patient has a history of Transient Ischemic Attack (TIA) for which she is on aspirin and Plavix. The TIA occurred on the birthday of a family member, and since then, she has been on these medications to prevent further episodes. The patient is also diagnosed with Diabetes Mellitus and is currently taking metformin 500 mg daily for management. There is no recent record of her A1c levels, and it is suggested to be checked when feasible. The patient has dementia, which affects her ability to sign documents and manage her daily activities independently. Her family is actively involved in her care, ensuring she receives appropriate support and supervision. The patient experiences leg swelling, for which she is on furosemide, likely to manage this condition. There is no mention of recent exacerbations or complications related to this condition. Recently, the patient experienced a fall resulting in a skin injury on her leg. The wound was treated with debridement and application of a topical antibiotic, followed by bandaging. Social History - Family Status: Lives with family americo he who are actively involved in her care. [facility] Medical History (Updated 03/04/25 @ 15:10 by Ayana Leung PA-C) Wound of right leg Pedal edema Type 2 diabetes mellitus with hemoglobin A1c goal of less than 7.0% TIA (transient ischemic attack) Dementia Family History Father No problems noted. Mother No problems noted. Social History Housing: House Housing Other:: livesz with son and and daughter Alcohol intake: current Alcohol intake frequency: does not drink Patient Tobacco Use Status: Former Tobacco user service: No Current occupational status: disabled Cognitive needs: Yes (uses cane/ Dementia ) Hearing needs: No Vision needs: Yes (rx glasses) Questionnaire AUDIT C Alcohol Use Questionnaire (AUDIT-C) 1. How often do you have a drink containing alcohol?: Never 3. How often do you have six or more drinks on one occasion?: Never Total Score: 0 Score Reviewed/Action Taken: Yes Review of Systems Const Details: - Neurological: Reports history of Transient Ischemic Attack (TIA). - Endocrine: Reports history of Diabetes Mellitus. - Cognitive: Reports dementia affecting daily activities. - Musculoskeletal: Reports leg swelling, denies recent exacerbations. - Integumentary: Reports recent fall with skin injury on leg. All systems reviewed & are unremarkable except as noted in HPI and below Physical exam (Primary Care) Vital Signs: Last Vital Signs Temp 97.8 F 03/04/25 10:12 Pulse 52 03/04/25 10:12 Resp 16 03/04/25 10:12 BP 168/72 H 03/04/25 10:12 Pulse Ox 100 03/04/25 10:12 Oxygen Delivery Method Room Air 03/04/25 10:12 Care Plan Goal for BP management: <140/90 BMI Assessment/Plan discussion: High BMI High, discussed plan: lifestyle, weight reduction, dietary, physical activity and alcohol moderation Tobacco/Smoking Status: Tobacco use Status Tobacco use date assessed 03/04/25 03/04/25 10:04 Patient Tobacco Use Status Former Tobacco user 03/04/25 10:29 PHQ-9: PHQ-9 Score PHQ-9: Total score 0 03/04/25 10:04 Thrive Assessment: Date of Thrive Assessment Date Thrive assessed 03/04/25 10:29 Const Other: Appearance: Alert. Pleasantly confused at baseline. No acute distress. Head: Normal external exam. Normocephalic. Atraumatic. Eyes: Pupils are equal, round, and reactive to light. Extraocular movements intact. Conjunctiva and sclera normal. Eyelids normal. Throat: Pharynx normal. Uvula midline. Moist mucous membranes. Neck: Normal inspection. Neck supple. Full range of motion. Cardiovascular: Normal heart rate and rhythm. Heart sound normal. No murmurs noted. Pulses normal throughout. Respiratory: No respiratory distress. Painless inspiration. Breath sounds normal. No wheezes/rales/rhonchi noted. Chest nontender. No accessory muscle usage noted or decreased air movement noted. Abdomen: Soft and nontender. Bowel sounds normal in all 4 quadrants. No distention noted. No organomegaly noted. Back: No costovertebral angle tenderness. Full range of motion noted. Skin: Skin warm and dry. Normal skin color. Normal skin turgor. Small wound to right lower extremity leblanc area with mild surrounding erythema no streaking, induration, fluctuance, purulent drainage, foul odor or signs of active or acute infection. No additional rashes/lesions/lacerations noted. Extremities: No lower extremity edema. Extremities exhibit normal range of motion. Neuro: Pleasantly confused at baseline. Normal steady gait. No focal deficits. Coding Level of Care Code New Pt Level 4 (58888) Complex EM visit Add On G2211 Diagnoses Dementia F03.90 TIA (transient ischemic attack) G45.9 Type 2 diabetes mellitus with hemoglobin A1c goal of less than 7.0% E11.9 Pedal edema R60.0 Wound of right leg S81.801A Assessment & Plan Assessment & Plan (1) Dementia: Code(s): F03.90 - Unspecified dementia, unspecified severity, without behavioral disturbance, psychotic disturbance, mood disturbance, and anxiety Category: Medical Plan: The patient requires assistance with daily activities due to dementia. Family members are actively involved in her care to ensure safety and support. (2) TIA (transient ischemic attack): Code(s): G45.9 - Transient cerebral ischemic attack, unspecified Category: Medical Plan: The patient is on aspirin and Plavix to prevent further episodes of TIA. Continued monitoring and adherence to medication are advised. (3) Type 2 diabetes mellitus with hemoglobin A1c goal of less than 7.0%: Code(s): E11.9 - Type 2 diabetes mellitus without complications Category: Medical Plan: The patient is currently taking metformin 500 mg daily for diabetes management. It is recommended to check her A1c levels when feasible to assess glycemic control. (4) Pedal edema: Code(s): R60.0 - Localized edema Category: Medical Plan: The patient is on furosemide, likely to manage leg swelling. No recent exacerbations or complications were noted. (5) Wound of right leg: Code(s): S81.801A - Unspecified open wound, right lower leg, initial encounter Category: Medical Plan: The patient experienced a fall resulting in a skin injury on her leg. The wound was treated with debridement and application of a topical antibiotic, followed by bandaging. Plan Plan Patient was informed and verbally consented to the use of an ambient scribe for clinic note documentation during this visit. 1. Transient Ischemic Attack (Tia) The patient is on aspirin and Plavix to prevent further episodes of TIA. Continued monitoring and adherence to medication are advised. 2. Diabetes Mellitus The patient is currently taking metformin 500 mg daily for diabetes management. It is recommended to check her A1c levels when feasible to assess glycemic control. 3. Dementia The patient requires assistance with daily activities due to dementia. Family members are actively involved in her care to ensure safety and support. 4. Leg Swelling The patient is on furosemide, likely to manage leg swelling. No recent exacerbations or complications were noted. 5. Fall With Skin Injury The patient experienced a fall resulting in a skin injury on her leg. The wound was treated with debridement and application of a topical antibiotic, followed by bandaging. I discussed with the family the importance of medication adherence for managing her TIA and diabetes. We also talked about the need for regular monitoring of her A1c levels to ensure effective diabetes management. The family is advised to bring her in for blood work when she is having a good day and can tolerate the procedure. Orders: Orders Comprehensive Met. Panel Today Z00.00 - Encounter for general adult medical examination without abnormal findings Magnesium Today Z00.00 - Encounter for general adult medical examination without abnormal findings Hemoglobin A1c Today Z00.00 - Encounter for general adult medical examination without abnormal findings Vitamin B12 and Folate Today Z00.00 - Encounter for general adult medical examination without abnormal findings Vitamin D 25-OH Total Today Z00.00 - Encounter for general adult medical examination without abnormal findings C Reactive Protein Today Z00.00 - Encounter for general adult medical exa mination without abnormal findings Complete Blood Count Auto Diff Today Z00.00 - Encounter for general adult medical examination without abnormal findings Liver Panel Today Z00.00 - Encounter for general adult medical examination without abnormal findings TSH reflex Free T4 Today Z00.00 - Encounter for general adult medical examination without abnormal findings Medications: New mupirocin 2% 1 appl topical BID 22 grams 1RF clopidogrel 75 mg PO DAILY 90 tabs 3RF furosemide 20 mg PO DAILY 90 tabs 3RF aspirin 81 mg PO DAILY 90 tabs 3RF metformin 500 mg PO DAILY 90 tabs 3RF oxybutynin chloride ER 10 mg PO DAILY 90 tabs 3RF potassium chloride ER 10 mEq PO DAILY 90 tabs 3RF simvastatin 40 mg PO BEDTIME 90 tabs 3RF Discontinued cephalexin Discontinued Reason: Patient no longer taking 500 mg PO Q8H 15 caps 0RF Patient Instructions: - Continue taking prescribed medications as directed. - Monitor blood sugar levels regularly and report any significant changes. - Bring the patient in for blood work when she is having a good day. - Ensure the wound is kept clean and bandaged as instructed.
[2025-03-04 10:12] VITALS: BP 168/72; PULSE 52; RESP 16; TEMP 36.6; O2SAT 100
== END 2025-03-04 11:02 | disposition home or self-care (01) ==
LOC: HO.HMCSH 09:55
PROVIDERS: PCP Internal Medicine; Visit Provider Physician Assistant Medical
DX: F03.90 Unspecified dementia, unspecified severity, without behavioral disturbance, psychotic disturbance, mood disturbance, and anxiety (principal); G45.9 Transient cerebral ischemic attack, unspecified; E11.9 Type 2 diabetes mellitus without complications; R60.0 Localized edema; S81.801A Unspecified open wound, right lower leg, initial encounter

== ENCOUNTER → 2025-03-04 09:52 | Outpatient (BNVA) | payer MEDICARE, MEDICAID, SELFPAY | PROVIDERS: PCP Internal Medicine; Visit Provider Physician Assistant Medical | DX: G45.9 Transient cerebral ischemic attack, unspecified (principal); F03.90 Unspecified dementia, unspecified severity, without behavioral disturbance, psychotic disturbance, mood disturbance, and anxiety; E11.9 Type 2 diabetes mellitus without complications; R60.0 Localized edema; S81.801D Unspecified open wound, right lower leg, subsequent encounter | CPT/HCPCS: 99202 ==

== ENCOUNTER 2025-07-30 20:10 | Emergency (ER) | payer MEDICARE, MEDICAID, SELFPAY ==
[2025-07-30 20:14] VITALS: PULSE 64; RESP 18; TEMP 36.5; O2SAT 98; BMI 36.1
--- NOTE | 2025-07-30 20:27 | ED.GENADULT ---
HPI - General Adult General Chief complaint: Ear Problems Stated complaint: left ear infection Time Seen by Provider: 07/30/25 20:22 Source: patient, family (patient's son), RN notes reviewed and old records reviewed Mode of arrival: ambulatory Limitations: other (The patient has advanced dementia) History of Present Illness ED Provider: Navid HPI narrative: 80-year-old female presents for evaluation of left ear redness. Per the patient's son it 1st developed last night. She has not had any fevers. She has a diabetic and has a advanced dementia The patient has not been complaining of any pain. She was brought to urgent care by her son and they referred her to the ER for ?IV antibiotics. ? Related Data Home Medications ?Medication ?Instructions ?Recorded ?Confirmed facial-body wipes 07/15/25 Previous Rx's ?Medication ?Instructions ?Recorded simvastatin 40 mg tablet 40 mg PO BEDTIME #90 tabs 03/04/25 diaper,brief,adult,disposable #120 ea 07/16/25 disposable gloves (Disposable #1,000 ea 07/16/25 Latex-Free Gloves) underpads 23 X 24 #200 ea 07/16/25 aspirin 81 mg tablet 81 mg PO DAILY #90 tabs 07/17/25 clopidogrel 75 mg tablet 75 mg PO DAILY #90 tabs 07/17/25 metformin 500 mg/5 mL oral solution 500 mg (5 mL) PO DAILY #473 mL 07/17/25 mupirocin 2 % topical ointment 1 appl topical BID #22 grams 07/17/25 oxybutynin chloride 5 mg/5 mL oral 2.5 mg (2.5 mL) PO BID PRN bladder 07/17/25 syrup spasms 90 days #473 mL potassium chloride 20 mEq/15 mL 10 meq (7.5 mL) PO DAILY 90 days 07/17/25 oral liquid #675 mL miscellaneous medical supply 1 ea miscellaneous Q2H #144 ea 07/18/25 levofloxacin 250 mg/10 mL oral 500 mg (20 mL) PO DAILY 7 days 07/30/25 solution #200 mL ofloxacin 0.3 % ear drops 10 drp otic (ear) left DAILY 7 07/30/25 days #10 mL Allergies Allergy/AdvReac Type Severity Reaction Status Date / Time sulfamethoxazole Allergy Mild Unknown Verified 07/30/25 20:20 Sulfa (Sulfonamide Allergy Unknown UNKNOWN Verified 07/30/25 20:20 Antibiotics) (SULFA (SULFONAMIDE ANTIBIOTICS)) Review of Systems Constitutional: Constitutional: Denies body ache(s), Denies chills, Denies fever(s) and Denies headache(s) Eyes: Eyes: Denies blurry vision ENT: Denies ear discharge, Reports otalgia, Denies facial pain, Denies headache(s) and Denies nasal congestion Cardiovascular: Cardiovascular: Denies chest pain and Denies dyspnea on exertion Respiratory: Respiratory: Denies cough and Denies dyspnea on exertion Gastrointestinal: Gastrointestinal: Denies abdominal pain Musculoskeletal: Musculoskeletal: Denies back pain Integumentary/Breasts: Skin/Breast: Reports erythema and Reports rash Neurologic: Denies headache(s) [facility] Past Medical History Medical History (Updated 07/30/25 @ 20:28 by Aureliano Shoemaker) Urinary and bowel incontinence Wound of right leg Pedal edema Type 2 diabetes mellitus with hemoglobin A1c goal of less than 7.0% TIA (transient ischemic attack) Dementia Family History Family History Father No problems noted. Mother No problems noted. Social History Social History Housing: House Housing Other:: livesz with son and and daughter Alcohol intake: current Alcohol intake frequency: does not drink Patient Tobacco Use Status: Former Tobacco user Advance Directives: No Advance Directives Information Provided: Yes Do you have a plan to hurt others: No Plan service: No Current occupational status: disabled Cognitive needs: Yes (uses cane/ Dementia ) Hearing needs: No Vision needs: Yes (rx glasses) Physical Exam ED Vital Signs: Vital Signs - 24 hr 07/30/25 20:14 Temperature 97.7 F Pulse Rate 64 Respiratory Rate 18 Pulse Oximetry 98 Oxygen Delivery Method Room Air BMI result Body Mass Index 36.1 Const General: healthy appearing, comfortable, no acute distress, alert and awake Nutritional Appearance: well nourished [facility] Other: There is [id number] erythema with edema of the left ear. There was no mastoid tenderness, no pre or postauricular edema. Head: Yes normocephalic and Yes atraumatic Ears: external ears abnormal, TM normal on the left and EAC's not normal (Left EAC erythematous and edematous. No obvious discharge) Eyes Eyelids: Yes eyelids normal Conjunctivae: conjunctivae normal Sclerae: sclerae normal Corneas: corneas normal Pupils: Equal, round and reactive pupils present EOM: EOMs intact bilaterally Neck Neck: Yes full ROM Resp Effort & Inspection: normal respiratory effort, able to speak in complete sentences and not labored Skin General skin exam: elasticity normal Neuro Cranial nerves: Yes Equal, round and reactive pupils present and Yes Bilaterally intact EOM present Extrem Other: Moving all extremities well without any obvious deformities Course Reevaluation(s) Reevaluation #1: Received a call from the patient's son, unfortunately the patient's insurance would not cover ciprofloxacin ear drops and apparently the pharmacy is unable to provide ciprofloxacin solution. This was transitioned to levofloxacin solution and on ofloxacin ear drops. Therefore she still has Pseudomonas coverage Time: 21:37 Medical Decision Making Medical Decision Making MDM Narrative: 80-year-old female presents for evaluation of left ear redness. She has a advanced dementia but the patient's son did not notice it until last night. She has not had any drainage from the ear. She is acting appropriately but due to her dementia is quite agitated. Discussed with my attending, Dr. Jauregui and we feel is appropriate to treat the patient with ciprofloxacin drops and oral suspension. The patient does not do well with pills Differential Diagnosis Differential Diagnoses: The differential diagnosis associated with the presentation includes Otitis externa Mastoiditis Malignant otitis externa Cellulitis Admission/Observation Consideration of admission/observation: Escalation of care including admission/observation considered The patient is afebrile and has not been on any antibiotics yet. We will trial p.o. and topical antibiotics Discharge Plan Discharge Clinical Impression: Otitis externa Patient Disposition: Home, Self-Care Instructions: Ear Infection (ED) Additional Instructions: Administer these ciprofloxacin ear drops to left ear as directed pain You should also take the antibiotic liquid as prescribed for 1 week Use ibuprofen or Tylenol for any pain. Follow up with your primary doctor, return for new or worsening symptoms Prescriptions: New levofloxacin 250 mg/10 mL solution 500 mg PO DAILY 7 Days Qty: 200 0RF ofloxacin 0.3 % drops 10 drp otic (ear) left DAILY 7 Days Qty: 10 0RF No Action (DME) facial-body wipes Misc See Rx Instructions .Route Rx Instructions: As directed (DME) underpads 23 X 24 pad See Rx Instructions .Route Qty: 200 1RF Rx Instructions: As directed- Disposable Bed Mats to be use three times a day. (DME) diaper,brief,adult,disposable Misc See Rx Instructions .Route Qty: 120 12RF Rx Instructions: As directed- use three times a day (DME) disposable gloves [Disposable Latex-Free Gloves] Misc See Rx Instructions .Route Qty: 1000 12RF Rx Instructions: As directed- Use up to three times a day potassium chloride 20 mEq/15 mL liquid 10 meq PO DAILY 90 Days Qty: 675 3RF metformin 500 mg/5 mL solution 500 mg PO DAILY Qty: 473 3RF oxybutynin chloride 5 mg/5 mL syrup 2.5 mg PO BID PRN (Reason: bladder spasms) 90 Days Qty: 473 3RF aspirin 81 mg tablet 81 mg PO DAILY Qty: 90 3RF clopidogrel 75 mg tablet 75 mg PO DAILY Qty: 90 3RF mupirocin 2 % ointment 1 appl topical BID Qty: 22 1RF miscellaneous medical supply Misc 1 ea miscellaneous Q2H Qty: 144 12RF Rx Instructions: Patient will need facial/body wipes simvastatin 40 mg tablet 40 mg PO BEDTIME Qty: 90 3RF Print Language: Azeri
== END 2025-07-30 22:04 | disposition home or self-care (01) ==
PROVIDERS: Emergency Provider Emergency Medicine; PCP Physician Assistant Medical
DX: H60.92 Unspecified otitis externa, left ear (principal); H92.02 Otalgia, left ear; E11.9 Type 2 diabetes mellitus without complications; Z86.73 Personal history of transient ischemic attack (TIA), and cerebral infarction without residual deficits; Z87.891 Personal history of nicotine dependence; Z79.84 Long term (current) use of oral hypoglycemic drugs; Z79.82 Long term (current) use of aspirin; Z79.899 Other long term (current) drug therapy
CPT/HCPCS: 99281; 99282